=== PATIENT | male | born 1995 | race Caucasian/White ===

== ENCOUNTER 2023-08-03 11:49 | Emergency (ER) | payer BC, SELFPAY ==
[2023-08-03 11:51] VITALS: BP 167/97
--- NOTE | 2023-08-03 12:56 | ED.GENMED ---
History of Present Illness
General
Chief Complaint: Musculo-Skeletal Complaint
Source: patient
Exam Limitations: none
Time Seen by Provider: 08/03/23 11:57
Nursing documentation reviewed up to this point in time: agreed with
Travel History
Have you had any contact with someone who has COVID-19?: No
Do you have any symptoms of coronavirus? Fever > 100 degrees, chills, cough, shortness of breath, sore throat, loss of taste or smell, muscle aches, or headache?: No
History of Present Illness
History of Present Illness:
28-year-old male with history of remote thyroidectomy presents for neck pain following a skiing accident. Patient says he was skiing down [place] 2 days ago and fell and believes he had an axial load to his head. He did have subsequent neck pain
but it was not as severe as it was yesterday and last night. Patient says he was even able to ski yesterday but over time when he was skiing he felt some pinches in his neck and decided to stop. He usually sleeps on the floor because he prefers it
but ended up waking up in a lot of pain last night at 2 AM and thus moved to a bed and felt much better. He took aspirin this morning. He feels pain most pain with flexion of his neck and has limited extension but is able to rotate. He is having
no radicular symptoms numbness tingling or weakness, loss of bowels or bladder, severe headache or nausea or vomiting. He is not big on taking medications, and he is also very concerned about radiation risk imaging
Past History
Past History
ED Past Medical History: Other (Thyroid cancer); Negative Asthma, HTN, Hypercholesterolemia or NIDDM
ED Past Surgical History: Other (Thyroid lobectomy Benign tumor)
Social History
Tobacco: Non-smoker
Alcohol: Occasional
Personal: Single
Living: alone
Review of Systems
Review of Systems
Allergies reviewed?: Yes
All Other Systems: Not applicable
Phy Exam
Physical Exam
Physical Exam:
GENERAL: Alert , in no apparent distress
HEAD: NCAT
NECK: Patient's neck is straight and, he has pain with movement specifically flexion which is very limited, he has extension to 15 degrees and can rotate 15 degrees laterally, he has no tenderness to palpation midline or paraspinal muscles
EYE: pupils equal and reactive, EOMs intact.
ENT: o/p clr, mmm. no hemotympanum
CARDIAC: Regular rate and rhythm, no edema
LUNGS: Clear breath sounds bilaterally, no acute respiratory distress, no wheezes/rales/rhonchi
ABDOMEN: Soft, without focal tenderness, no r/g, no cvat
NEUROLOGICAL: Alert and oriented, no focal neuro deficits, CN intact, 5/5 strength, sensation intact full strength and sensation, normal neurovascular exam, normal reflexes
SKIN: Warm and dry,
MUSCULOSKELETAL: No edema, well perfused.
PSYCH: Normal and appropriate interaction.
Course
Orders/Labs/Results
Orders:
Orders
08/03/23 12:55
Ketorolac [Toradol] 30 mg IM NOW STA
08/03/23 13:24
CR Thoracic Spine 3 Views Urgent
Reason For Exam: upper t spine pain after skiing injury
Cervical Spine 4 or 5 Vw [CR Cervical Spine 4 Or 5 Vw] Urgent
Comment:
Reason For Exam: neck axial injury skiing
Vital Signs
Initial and Last Documented VS:
Initial Vital Signs
Temp Pulse Resp BP Pulse Ox
98.4 F 82 18 167/97 100
08/03/23 11:51 08/03/23 11:51 08/03/23 11:51 08/03/23 11:51 08/03/23 11:51
Last Documented Vital Signs
Temp Pulse Resp BP Pulse Ox
98.4 F 82 18 167/97 100
08/03/23 11:51 08/03/23 11:51 08/03/23 11:51 08/03/23 11:51 08/03/23 11:51
MDM/Problems Addressed
Differential Diagnosis Includes:
Cervical ligamentous injury, compression fracture, disc herniation, concussion
MDM/Problems Addressed:
28 y/o M no medical problems now but had partial thyroidectomy for cancer previously here with neck pain and stiffness following pretty bad sounding skiing axial load injury to the head/neck 2 days ago; has had worsening amber with dec rom; most
difficult is flexion; he is straightened without any tenderness and normal NV exam, no complaints of weakness or numbness or radicular sypmtmos; due to his limited ROM and concern about the injury i wanted to at least get CT of his spine but he
really is concerned about radiation because of his thyroid; he refused the CT and the patient did request that I try to order an MRI which I did discuss with radiologist however unfortunately we were unable to accommodate this. He did not meet any
criteria for red flag symptoms concerning for cauda equina syndrome. And thus I discussed with ED attending and we decided to recommend CT however patient declined and would prefer x-rays.
his xray just shows loss of lordosis no fracture; I spoke with Dr. Mcclure from neurosurgery who can follow-up with him but she did asked that I order an MRI for him to get as an outpatient and put him in collar. He was put in a [place] collar and
told to leave this in place. Ibuprofen, Flexeril, follow-up
*Critical Care Note
Total Time (30-74mins, 75-104mins- exclusive of procedures): Not Applicable
ED Attending Note
-
Portions of this chart may have been created with voice recognition software.� Occasional wrong word or��sound alike� substitutions may have occurred due to the inherent limitations of voice recognition software.
Discharge Plan
Departure
Patient Disposition: Home (Routine Discharge)
Date of Disposition: 08/03/23
Time of Disposition: 15:04
Patient with high blood pressure during this ER visit?: Yes
Condition: Fair
Covid-19: Not Applicable
Discharge Problem:
Cervical muscle strain
Instructions: Cervical Muscle Strain (DC)
Prescriptions:
New
cyclobenzaprine 10 mg tablet
10 mg PO HS PRN (Reason: muscle spasm) Qty: 10 0RF
ibuprofen 600 mg tablet
600 mg PO Q8H PRN (Reason: Pain) Qty: 20 0RF
Referrals:
NONE,* [Family Provider] -
Carmela Mcclure MD [Active] - Follow up in 1 week
Activity Restrictions/Additional Instructions:
YOUR XRAYS SHOWED SOME STRAIGHTENING OF THE MUSCLES BUT NO OBVIOUS FRACTURE
BECAUSE OF YOUR PAINFUL RANGE OF MOTION YOU WERE RECOMMENDED TO WEAR THE COLLAR AND FOLLOW UP WITH NEUROSURGERY
TAKE MOTRIN 600 MG EVERY 8 HOURS NEEDED FOR 3-5 DAYS FOR INFLAMMATION
FOR MUSCLE SPASM YOU CAN TRY FLEXERIL 10 MG AT NIGHT BEFORE BED
you can try scheduling yur MRI, i wrote the prescription so you can try to have that done.
return for: numbness/tingling/weakness in arms or legs, severe pain or any concerns.
Interventions
Interventions:
*Risk Screen - Suicide Last Done: 08/03/23 11:54
*General Assessment Last Done: 08/03/23 11:54
*Neglect/Abuse Screening Last Done: 08/03/23 11:54
*ED COVID-19 Vaccine History Last Done: 08/03/23 13:17
*Nursing Disposition Last Done: 08/03/23 15:27
ED-Musculoskeletal Assessment Last Done: 08/03/23 13:17
Discharge Date and Time
Discharge Date/Time: 08/03/23 15:28
[2023-08-03 13:21] VITALS: BMI 27.2
== END 2023-08-03 15:28 | disposition home or self-care (01) ==
LOC: EMR 11:49
PROVIDERS: EMERGENCY PHYSICIAN Emergency Medicine
DX: S16.1XXA Strain of muscle, fascia and tendon at neck level, initial encounter (principal); W19.XXXA Unspecified fall, initial encounter; Y93.23 Activity, snow (alpine) (downhill) skiing, snowboarding, sledding, tobogganing and snow tubing
CPT/HCPCS: 99283; 72050; 72072